=== PATIENT | female | born 1960 | race Caucasian/White ===

== ENCOUNTER 2021-04-30 17:47 | Inpatient (IN) | payer BC ==
[~2021-04-30] VITALS: Ht 162.6 cm; Wt 87.1 kg
[~2021-04-30 17:47] MED LIST: CARISOPRODOL 3350 MG PO; LISINOPRIL10 MG PO; PREDNISONE 10 M10 MG PO; VENTOLIN HFA 1818 GM INH
[2021-04-30 17:56] VITALS: BP 149/85
[2021-04-30] MEDS ORDERED: MELOXICAM7.5 MG PO (17:59)
[2021-04-30 18:26] LABS: HEMATOCRIT 42.9 % (37.0-47.0); HEMOGLOBIN 15.4 gm/dL (12.0-15.0); MCH 33.6 pg (26.0-34.0); MCHC 35.9 g/dL (28.0-37.0); MCV 93.6 fL (80.0-100.0); MPV 7.6 fl. (7.2-11.1); NUCLEATED RBCS 0 /100WBC; PLATELET COUNT* 213 thou/uL (150-400); RBC 4.58 mil/uL (4.20-5.00); RDW-CV 12.6 % (10.5-14.5); WBC 17.4 thou/uL (4.0-11.0)
[2021-04-30 18:35] LABS: CALCIUM 8.4 mg/dL (8.5-10.1); CREATININE 1.2 mg/dL (0.6-1.3); POTASSIUM 3.4 mmol/L (3.5-5.1)
[2021-04-30 18:40] LABS: ALBUMIN 3.4 g/dL (3.4-5.0); TOTAL BILIRUBIN 1.2 mg/dL (<0.1-1.0); TOTAL PROTEIN 7.8 g/dL (6.4-8.2)
[2021-04-30 19:01] LABS: ABSOLUTE LYMPHOCYTES 1.6 thou/uL (0.8-5.3); ABSOLUTE MONOCYTES 0.7 thou/uL (0.0-1.2); ABSOLUTE NEUTROPHILS 15.1 thou/uL (1.6-8.1); ATYPICAL LYMPHS 2 %; CLUMPED PLTS OCCASIONAL; PLATELET ESTIMATE ADEQUATE
[2021-04-30 21:28] VITALS: BP 132/76
[2021-04-30] MEDS ORDERED: LISINOPRIL-HCT1 EAC1 PO (22:01)
[2021-04-30] MEDS ORDERED: SONATA5 M1 PO (22:03)
[2021-04-30] MEDS ORDERED: ACETAMINOPHEN500 M1 PO (22:15)
[2021-05-01] VITALS: BP 150/66
[2021-05-01 04:00] VITALS: BP 96/49
[2021-05-01 08:30] VITALS: BP 133/63
[2021-05-01 12:00] VITALS: BP 141/72
[2021-05-01 12:04] LABS: CALCIUM 7.9 mg/dL (8.5-10.1); CREATININE 0.8 mg/dL (0.6-1.3); POTASSIUM 3.6 mmol/L (3.5-5.1)
[2021-05-01 16:00] VITALS: BP 87/57
[2021-05-01 19:54] VITALS: BP 123/66
[2021-05-02 00:41] VITALS: BP 116/51
[2021-05-02 04:49] LABS: ALBUMIN 2.5 g/dL (3.4-5.0); CREATININE 0.8 mg/dL (0.6-1.3); MAGNESIUM 2.2 mg/dL (1.8-2.4); POTASSIUM 3.8 mmol/L (3.5-5.1); TOTAL BILIRUBIN 0.2 mg/dL (<0.1-1.0); TOTAL PROTEIN 6.3 g/dL (6.4-8.2)
[2021-05-02 04:54] LABS: HEMATOCRIT 33.9 % (37.0-47.0); MCH 33.1 pg (26.0-34.0); MCHC 35.4 g/dL (28.0-37.0); MCV 93.7 fL (80.0-100.0); RBC 3.61 mil/uL (4.20-5.00); RDW-CV 12.6 % (10.5-14.5)
[2021-05-02 05:18] VITALS: BP 110/47
[2021-05-02 08:51] VITALS: BP 108/56
--- NOTE | 2021-05-02 09:54 | EKG ---
[place] [address] ELECTROCARDIOGRAM REPORT Name: NALLELY ALTAMIRANO Room: [address] ADM IN .R.#: [id number] Admission: 05/02/21 Attend Phys: Jessica Edwards, Discharge: Date of : 58 Date of Service: 04/30/21 182 Report #: [id number] THIS REPORT FOR: //name// [facility] ED Test Date: 2021-04-30 Test Time: 18:26:18 Pat Name: NALLELY ALTAMIRANO Department: Room: [facility] Gender: F Body Shop Estimator: OLVIN : 1960 Requested By: Lupillo Murcia Order Number: [id number] MD: Ravi Harrington Measurements Intervals [place] Rate: 94 P: 44 [place]: 105 QRS: -16 QRSD: 97 T: 162 QT: 347 QTc: 434 Interpretive Statements Sinus rhythm Short [place] interval Borderline left axis deviation Borderline repolarization abnormality Baseline wander in lead(s) V5 Compared to ECG 02/08/2015 12:19 rate has increased Electronically Signed On 05-02-2021 9:54:00 CDT by Ravi Harrington [email or web address] <ELECTRONICALLY SIGNED> By: Ravi Harrington MD, FAC 05/02/21 0954 182 1826 Ravi Harrington MD, FAC /EPI
[2021-05-02 12:00] VITALS: BP 108/59
[2021-05-02 15:35] VITALS: BP 117/58
[2021-05-02 19:55] VITALS: BP 143/68
[2021-05-03 00:08] VITALS: BP 116/50
[2021-05-03 04:44] VITALS: BP 111/65
[2021-05-03 04:54] LABS: HEMATOCRIT 33.2 % (37.0-47.0); HEMOGLOBIN 11.8 gm/dL (12.0-15.0); MCH 33.1 pg (26.0-34.0); MCHC 35.4 g/dL (28.0-37.0); MCV 93.3 fL (80.0-100.0); MPV 8.2 fl. (7.2-11.1); RBC 3.56 mil/uL (4.20-5.00); RDW-CV 12.5 % (10.5-14.5); WBC 7.6 thou/uL (4.0-11.0)
[2021-05-03 04:59] LABS: ALBUMIN 2.5 g/dL (3.4-5.0); CALCIUM 7.9 mg/dL (8.5-10.1); CREATININE 0.7 mg/dL (0.6-1.3); POTASSIUM 3.7 mmol/L (3.5-5.1); TOTAL BILIRUBIN 0.3 mg/dL (<0.1-1.0); TOTAL PROTEIN 6.2 g/dL (6.4-8.2)
[2021-05-03 09:15] VITALS: BP 112/60
[2021-05-03 12:00] VITALS: BP 113/59; BP 139/71
[2021-05-03 16:00] VITALS: BP 142/65
[2021-05-03 19:25] VITALS: BP 140/69
[2021-05-03 19:43] LABS: APTT 23.4 Seconds (25.0-31.3); INR 0.9; PROTIME 9.8 Seconds (9.20-11.50)
[2021-05-04] VITALS: BP 110/62
[2021-05-04 04:00] VITALS: BP 157/74
[2021-05-04 04:48] LABS: MCH 32.8 pg (26.0-34.0); MCHC 35.2 g/dL (28.0-37.0); MCV 93.1 fL (80.0-100.0); MPV 7.9 fl. (7.2-11.1); NUCLEATED RBCS 0 /100WBC; PLATELET COUNT* 246 thou/uL (150-400); RBC 3.65 mil/uL (4.20-5.00); RDW-CV 12.2 % (10.5-14.5); WBC 5.5 thou/uL (4.0-11.0)
[2021-05-04 04:57] LABS: CALCIUM 8.3 mg/dL (8.5-10.1); CREATININE 0.9 mg/dL (0.6-1.3); MAGNESIUM 2.1 mg/dL (1.8-2.4); POTASSIUM 4.1 mmol/L (3.5-5.1)
[2021-05-04 06:59] LABS: ABSOLUTE LYMPHOCYTES 0.6 thou/uL (0.8-5.3); ABSOLUTE MONOCYTES 0.2 thou/uL (0.0-1.2); ABSOLUTE NEUTROPHILS 4.7 thou/uL (1.6-8.1); ATYPICAL LYMPHS 3 %; METAMYELOCYTES 6 %; PLATELET ESTIMATE ADEQUATE
[2021-05-04 08:00] VITALS: BP 148/69
[2021-05-04 12:00] VITALS: BP 141/72
--- NOTE | 2021-05-04 13:39 | 2DMMODE ---
[place] [address] 2 D/M-MODE ECHOCARDIOGRAM Name: NALLELY ALTAMIRANO Room: [address] IN [facility].#: [id number] Admission: 05/02/21 Attend Phys: Jessica Edwards, Discharge: Date of : 58 Date of Service: 05/04/21 1339 Report #: [id number] THIS REPORT FOR: cc: Naun Bower,Naun Parish,Ravi Balbuena MD [facility] ~ APPROVED REPORT Study performed: 05/04/2021 10:38:53 EXAM: Comprehensive 2D, Doppler, and color-flow Echocardiogram Patient Location: In-Patient Room #: [facility] Status: routine BSA: 1.90 HR: 91 bpm BP: 148/69 mmHg Rhythm: NSR Other Information Study Quality: Good Indications Sepsis Dyspnea 2D Dimensions IVSd: 7.78 (7-11mm) LVOT Diam: 18.84 (18-24mm) LVDd: 41.34 mm PWd: 7.00 (7-11mm) LVDs: 23.09 (25-40mm) Aortic Root: 29.58 mm Volumes Left Atrial Volume (Systole) LA ESV Index: 21.20 mL/m2 Aortic Valve AoV Peak Jaime.: 1.75 m/s AO Peak Gr.: 12.22 mmHg LVOT Max P.07 mmHg AO Mean Gr.: 7.26 mmHg LVOT Mean P.12 mmHg LVOT Max V: 1.33 m/s AO V2 VTI: 28.05 cm LVOT Mean V: 0.80 m/s PASTORA (VTI): 2.60 cm2 LVOT V1 VTI: 26.21 [place] [address] 2 D/M-MODE ECHOCARDIOGRAM Name: NALLELY ALTAMIRANO Room: [address] IN M.R.#: [id number] Admission: 05/02/21 Attend Phys: Jessica Edwards, Discharge: Date of : 58 Date of Service: 05/04/21 1339 Report #: [id number] Mitral Valve E/A Ratio: 1.22 MV Decel. Time: 211.34 ms MV E Max Jaime.: 1.20 m/s MV PHT: 61.29 ms MVA (PHT): 3.59 cm2 TDI E/Lateral E': 9.23 E/Medial E': 7.06 Medial E' Jaime.: 0.17 m/s Lateral E' Jaime.: 0.13 m/s Pulmonary Valve PV Peak Jaime.: 1.30 m/s PV Peak Gr.: 6.71 mmHg Tricuspid Valve RAP Estimate: 5.00 mmHg TR Peak Gr.: 36.01 mmHg RVSP: 41.00 mmHg PA Pressure: 41.00 mmHg Left Ventricle The left ventricle is normal size. There is normal LV segmental wall motion. There is normal left ventricular wall thickness. Left ventricular systolic function is normal. The left ventricular ejection fraction is within the normal range. LVEF is 60-65%. The left ventricular diastolic function is normal. Right Ventricle The right ventricle is normal size. The right ventricular systolic function is normal. Atria The left atrium size is normal. The right atrium size is normal. Aortic Valve The aortic valve is normal in structure. No aortic regurgitation is present. There is no aortic valvular stenosis. Mitral Valve The mitral valve is normal in structure. There is no mitral valve regurgitation noted. No evidence of mitral valve stenosis. Tricuspid Valve The tricuspid valve [place] [address] 2 D/M-MODE ECHOCARDIOGRAM Name: NALLELY ALTAMIRANO Room: [address] IN [facility]#: [id number] Admission: 05/02/21 Attend Phys: Jessica Edwards, Discharge: Date of : 58 Date of Service: 05/04/21 1339 Report #: [id number] regurgitation. estimated pa pressure 40 mm Hg Pulmonic Valve The pulmonary valve is normal in structure. There is no pulmonic valvular regurgitation. Great Vessels The aortic root is normal in size. IVC is normal in size and collapses >50% with inspiration. Pericardium There is no pericardial effusion. <Conclusion> LVEF is 60-65%. Trace tricuspid regurgitation. estimated pa pressure 40 mm Hg <ELECTRONICALLY SIGNED> By: Ravi Harrington MD, [facility] 05/04/21 1339 1339 1339 Ravi Harrington MD, FACC /INF
[2021-05-04 16:00] VITALS: BP 149/80
[2021-05-04 18:48] LABS: CALCIUM 8.3 mg/dL (8.5-10.1); CREATININE 0.9 mg/dL (0.6-1.3); POTASSIUM 3.8 mmol/L (3.5-5.1)
[2021-05-04 20:00] VITALS: BP 132/78
[2021-05-05 00:32] VITALS: BP 128/64
[2021-05-05 04:10] VITALS: BP 138/60
[2021-05-05 04:35] LABS: CALCIUM 8.3 mg/dL (8.5-10.1); CREATININE 0.8 mg/dL (0.6-1.3); POTASSIUM 3.7 mmol/L (3.5-5.1)
[2021-05-05 08:00] VITALS: BP 145/78
[2021-05-05] MEDS ORDERED: LEVOFLOXACIN500 MG PO (09:24)
[2021-05-05] MEDS ORDERED: PREDNISONE 10 M10 MG PO (09:24)
[2021-05-05] MEDS ORDERED: XARELTO20 MG PO (10:31)
[2021-05-05] MEDS ORDERED: ALPRAZOLAM 0.50.5 M1 PO (10:31)
[2021-05-05] MEDS ORDERED: XARELTO15 MG PO (10:31)
[2021-05-05 12:00] VITALS: BP 149/82
[2021-05-05 14:44] VITALS: BP 145/78
[2021-05-05 16:56] VITALS: BP 145/78
--- NOTE | 2021-05-05 22:32 | CON ---
[address] [address] CONSULTATION Name: NALLELY ALTAMIRANO Room: [address] IN M.R.#: [id number] Admission: 05/02/21 Attend Phys: Jessica Edwards MD Discharge: 05/05/21 Date of : 58 Report #: [id number] THIS REPORT FOR: cc: Naun Bower,Jose Linton MD ~ DATE OF CONSULTATION: 05/03/2021 REQUESTING PHYSICIAN: Dr. Edwards. INDICATION FOR CONSULTATION: COPD exacerbation. HISTORY OF PRESENT ILLNESS: This is a 60-year-old female, active smoker, with history of COPD, not on oxygen or CPAP at home, who presented with increasing shortness of breath of 2-3 days' duration. She has been coughing, has brought up small amounts of white and clear sputum. She has had chest pain on the right side associated with respiration and coughing. She does not have upper respiratory complaints. There is mild swelling of lower extremities. There is no calf pain. The patient does report that she received the Fazal and Fazal COVID-19 vaccine in Spring. She has had disturbed sleep at night as well as sleepiness during the day which is longstanding. The patient was noted to be hypoxemic on arrival. Currently, she is requiring nasal cannula to maintain O2 saturation. Overall, she does report improvement in shortness of breath compared with when she was admitted. REVIEW OF SYSTEMS: Negative for 12 points except as mentioned above. PAST MEDICAL HISTORY: 1. COPD, not on oxygen or positive airway pressure therapy at home. 2. Arthritis. 3. Hypertension. PAST SURGICAL HISTORY: 1. Bowel reconstruction. 2. Hysterectomy. SOCIAL HISTORY: Extensive history of smoking, still smokes. Also has used marijuana. No known history of heavy alcohol use or illegal drug use. Fazal and Fazal COVID-19 vaccine in Spring. ALLERGIES: CODEINE. CURRENT MEDICATIONS: List in [facility] [employer], [place] [address] CONSULTATION Name: NALLELY ALTAMIRANO Room: [address]#: [id number] Admission: 05/02/21 Attend Phys: Jessica Edwards MD Discharge: 05/05/21 Date of : 58 Report #: [id number] HOME MEDICATIONS: List in [employer] [facility] [employer], reviewed. FAMILY HISTORY: No pertinent family history. PHYSICAL EXAMINATION: GENERAL: Alert, awake and oriented. Does not appear to be in any distress. VITAL SIGNS: Pulse 92, blood pressure 140/69, saturating 92-93% on 2-3 liters nasal cannula, afebrile. HEENT: Head is normocephalic and atraumatic. Pupils are equal and reactive. There is no throat erythema. NECK: Does not show raised JVP asymmetry, mass or lymph nodes. CHEST: Symmetrical expansion on inspection and palpation. On auscultation, breath sounds are bilaterally equal, but decreased. Expirations are prolonged. There is no tenderness over the site of chest pain which is where the right lower chest is. HEART: Regular. No murmur. ABDOMEN: Soft and nontender. EXTREMITIES: Lower extremities show trace edema. No calf tenderness. SKIN: Dry and intact. NEUROLOGICAL: Moves all extremities bilaterally equally and spontaneously with no focal deficit identified. LABORATORY AND DIAGNOSTIC DATA: The patient's lab work as well as chest x-rays in [facility] reviewed. I repeated a chest x-ray now as well as coagulation studies. ASSESSMENT AND PLAN: 1. Acute hypoxemic respiratory failure secondary to chronic obstructive pulmonary disease exacerbation. Continue to titrate oxygen. 2. Chronic obstructive pulmonary disease exacerbation. I agree with Solu-Medrol as well as nebulized bronchodilators as currently prescribed. 3. Pulmonary infiltrates. Agree with Levaquin. There may also be a component of fluid overload/increase in pulmonary vascular congestion. We will assess further by an echo as well as I am also ordering a CT. 4. Chest pain. This is most likely musculoskeletal, but I will go ahead and order a CTA chest as well. 5. Mild fluid overload/lower extremity edema. Only trace edema. I feel that overall she is fluid overloaded. I will do venous Dopplers. She will get IV dye with CT. I did not order Lasix now. We will consider later. 6. Hypersomnia/sleep disturbances. She likely has underlying obstructive sleep apnea. Recommended outpatient sleep study after discharge. Some weight loss may also be of benefit. 7. Active smoker/[place] [address] CONSULTATION Name: NALLELY ALTAMIRANO Room: [address]#: [id number] Admission: 05/02/21 Attend Phys: Jessica Edwards MD Discharge: 05/05/21 Date of : 58 Report #: [id number] 8. Deep venous thrombosis prophylaxis. She is on Lovenox. 9. Clostridium difficile prophylaxis. We will add Lactinex. <ELECTRONICALLY SIGNED> By: Jose Pickett MD 05/05/21 2232 2148 [id number] Pickett MD /nt
[2021-05-06 19:07] LABS: ANA INTERPRETATION Negative (())
== END 2021-05-05 16:51 | disposition home or self-care (01) | DRG 871 ==
LOC: M.ERS 17:47 → M.TBA-ER 19:39 → M.2W 19:57
PROVIDERS: Family Medicine; Internal Medicine Critical Care Medicine; Physician Assistant; ADMIT Internal Medicine; ATTEND Internal Medicine
PROC: 5A0935A Assistance with Respiratory Ventilation, Less than 24 Consecutive Hours, High Flow/Velocity Cannula (ICD-10-PCS; principal; 2021-05-01)
PROC: 5A0935A Assistance with Respiratory Ventilation, Less than 24 Consecutive Hours, High Flow/Velocity Cannula (ICD-10-PCS; 2021-05-02)
DX: A41.9 Sepsis, unspecified organism (principal); J96.01 Acute respiratory failure with hypoxia; J15.6 Pneumonia due to other Gram-negative bacteria; I26.99 Other pulmonary embolism without acute cor pulmonale; E87.1 Hypo-osmolality and hyponatremia; J44.1 Chronic obstructive pulmonary disease with (acute) exacerbation; J44.0 Chronic obstructive pulmonary disease with (acute) lower respiratory infection; I10 Essential (primary) hypertension; E87.6 Hypokalemia; G47.10 Hypersomnia, unspecified; F12.90 Cannabis use, unspecified, uncomplicated; E83.51 Hypocalcemia; F17.210 Nicotine dependence, cigarettes, uncomplicated; M19.90 Unspecified osteoarthritis, unspecified site; Z20.822 Contact with and (suspected) exposure to COVID-19; Z90.710 Acquired absence of both cervix and uterus; Z79.899 Other long term (current) drug therapy; Z88.5 Allergy status to narcotic agent

== ENCOUNTER 2021-05-25 14:24 | Emergency (ER) | payer BC ==
[~2021-05-25] VITALS: Ht 162.6 cm; Wt 85.7 kg
[~2021-05-25 14:24] MED LIST changes: +ACETAMINOPHEN500 M1 PO; +ALPRAZOLAM 0.50.5 M1 PO; +LEVOFLOXACIN500 MG PO; +LISINOPRIL-HCT1 EAC1 PO; +MELOXICAM7.5 MG PO; +SONATA5 M1 PO; +XARELTO15 MG PO; +XARELTO20 MG PO
[2021-05-25 15:13] LABS: ABSOLUTE LYMPHOCYTES 0.3 thou/uL (0.8-5.3); ABSOLUTE MONOCYTES 0.3 thou/uL (0.0-1.2); ABSOLUTE NEUTROPHILS 2.6 thou/uL (1.6-8.1); BASOPHILS 0.9 %; EOSINOPHILS 0.1 %; HEMATOCRIT 40.9 % (37.0-47.0); LYMPHOCYTES 9.8 %; MCH 31.6 pg (26.0-34.0); MCHC 34.2 g/dL (28.0-37.0); MCV 92.6 fL (80.0-100.0); MONOCYTES 9.7 %; MPV 7.1 fl. (7.2-11.1); NUCLEATED RBCS 0 /100WBC; PLATELET COUNT* 190 thou/uL (150-400); POLYS 79.5 %; RBC 4.41 mil/uL (4.20-5.00); RDW-CV 12.9 % (10.5-14.5); WBC 3.2 thou/uL (4.0-11.0)
[2021-05-25 15:19] LABS: INFLUENZA A ANTIGEN Negative (Negative); INFLUENZA B ANTIGEN Negative (Negative)
[2021-05-25 15:27] LABS: CALCIUM 8.3 mg/dL (8.5-10.1); POTASSIUM 3.8 mmol/L (3.5-5.1)
[2021-05-25 15:31] LABS: ALBUMIN 3.6 g/dL (3.4-5.0); TOTAL BILIRUBIN 0.5 mg/dL (<0.1-1.0); TOTAL PROTEIN 7.2 g/dL (6.4-8.2)
[2021-05-25 17:10] VITALS: BP 113/68
--- NOTE | 2021-05-26 09:59 | EKG ---
[place] [address] ELECTROCARDIOGRAM REPORT Name: ADARSHNALLELY Room: [facility]#: [id number] Admission: 05/25/21 Attend Phys: Discharge: 05/25/21 Date of : 58 Date of Service: 05/25/21 1513 Report #: [id number] THIS REPORT FOR: //name// [facility] ED Test Date: 2021-05-25 Test Time: 15:13:24 Pat Name: NALLELY ALTAMIRANO Department: Room: Gender: F Clammer: : 1960 Requested By: Arnol Delgadillo Order Number: [id number] MD: Ravi Harrington Measurements Intervals [place] Rate: 102 P: 35 ND: 109 QRS: -29 QRSD: 95 T: 65 QT: 341 QTc: 445 Interpretive Statements Sinus tachycardia Borderline left axis deviation Low voltage, precordial leads Abnormal R-wave progression, late transition Artifact in lead(s) I,II,III,aVR,aVL,aVF,V6 Compared to ECG 04/30/2021 18:26:18 Low QRS voltage now present Sinus rhythm no longer present Electronically Signed On 05-26-2021 9:59:41 CDT by Ravi Harrington [email or web address] <ELECTRONICALLY SIGNED> By: Ravi Harrington MD, [facility] 05/26/21 0959 1513 1513 Ravi Harrington MD, [facility] /EPI
== END 2021-05-25 17:00 | disposition home or self-care (01) ==
LOC: M.ERS 14:24
PROVIDERS: Nurse Practitioner Psychiatric/Mental Health
DX: U07.1 COVID-19 (principal); J44.9 Chronic obstructive pulmonary disease, unspecified; I10 Essential (primary) hypertension; Z88.5 Allergy status to narcotic agent

== ENCOUNTER 2021-09-12 06:22 | Inpatient (IN) | payer BC ==
[~2021-09-12] VITALS: Ht 162.6 cm; Wt 81.6 kg
[2021-09-12 06:32] VITALS: BP 129/93
[2021-09-12] MEDS ORDERED: ADVAIR (06:38)
[2021-09-12 06:49] LABS: ABSOLUTE LYMPHOCYTES 1.1 thou/uL (0.8-5.3); ABSOLUTE MONOCYTES 0.7 thou/uL (0.0-1.2); ABSOLUTE NEUTROPHILS 5.2 thou/uL (1.6-8.1); BASOPHILS 0.4 %; EOSINOPHILS 0.3 %; HEMATOCRIT 45.2 % (37.0-47.0); HEMOGLOBIN 15.5 gm/dL (12.0-15.0); MCH 31.6 pg (26.0-34.0); MCHC 34.4 g/dL (28.0-37.0); MCV 91.8 fL (80.0-100.0); MONOCYTES 10.4 %; MPV 7.5 fl. (7.2-11.1); NUCLEATED RBCS 0 /100WBC; PLATELET COUNT* 332 thou/uL (150-400); POLYS 72.9 %; RBC 4.92 mil/uL (4.20-5.00); RDW-CV 12.5 % (10.5-14.5); WBC 7.1 thou/uL (4.0-11.0)
[2021-09-12 07:08] LABS: CALCIUM 8.8 mg/dL (8.5-10.1); CREATININE 0.7 mg/dL (0.6-1.3); POTASSIUM 3.9 mmol/L (3.5-5.1)
[2021-09-12 07:13] LABS: ALBUMIN 3.8 g/dL (3.4-5.0); MAGNESIUM 1.8 mg/dL (1.8-2.4); TOTAL BILIRUBIN 0.5 mg/dL (<0.1-1.0)
[2021-09-12 09:03] LABS: URINE BILIRUBIN NEGATIVE (Negative); URINE BLOOD TRACE (Negative); URINE CLARITY CLEAR; URINE COLOR YELLOW; URINE GLUCOSE-RANDOM NEGATIVE (Negative); URINE KETONES TRACE (Negative); URINE LEUKOCYTES-REFLEX NEGATIVE (Negative); URINE NITRITE-REFLEX NEGATIVE (Negative); URINE PROTEIN NEGATIVE (Negative); URINE SPECIFIC GRAVITY 1.015 (1.005-1.030); URINE UROBILINOGEN 0.2 E.U./dl (0.2-1.0)
[2021-09-12 10:40] VITALS: BP 132/84
[2021-09-12 10:48] VITALS: BP 156/91
[2021-09-12] MEDS ORDERED: PROAIR HFA8.5 GM INH (11:04)
[2021-09-12 12:00] VITALS: BP 121/53
[2021-09-12 16:00] VITALS: BP 126/63
--- NOTE | 2021-09-12 16:04 | EKG ---
[place] [address] ELECTROCARDIOGRAM REPORT Name: DANGZinaNALLELY Room: [address] ADM IN ..#: [id number] Admission: 09/12/21 Attend Phys: Bill Kwon Discharge: Date of : 58 Date of Service: 09/12/21 0631 Report #: [id number] THIS REPORT FOR: //name// [facility] ED Test Date: 2021-09-12 Test Time: 06:31:06 Pat Name: NALLELY ALTAMIRANO Department: Room: [facility] Gender: F Network Director: CEDRIC : 1960 Requested By: Julianne Guzman Order Number: [id number] MD: Nain Leonardo Measurements Intervals [place] Rate: 86 P: 38 RI: 109 QRS: -37 QRSD: 103 T: 142 QT: 378 QTc: 452 Interpretive Statements Sinus rhythm Short [place] interval Left axis deviation Possible anteroseptal infarct, old Borderline ST depression, inferior leads Abnormal T, consider ischemia, lateral leads Borderline ST elevation, lateral leads Artifact in lead(s) I,III,aVR,aVL,aVF Compared to ECG 05/25/2021 15:13:24 Short RI interval now present Myocardial infarct finding persists ST (T wave) deviation now present Electronically Signed On 09-12-2021 16:04:04 EARRINGS FABRICATOR by Nain Leonardo [email or web address] <ELECTRONICALLY SIGNED> By: Nain Leonardo MD, [facility] 09/12/21 1604 0 Nain Leonardo MD, [facility] /EPI
--- NOTE | 2021-09-12 16:10 | EKG ---
[place] [address] ELECTROCARDIOGRAM REPORT Name: DANGZinaNALLELY Room: [address] ADM [place] .R.#: [id number] Admission: 09/12/21 Attend Phys: Bill Kwon Discharge: Date of : 58 Date of Service: 09/12/21 1555 Report #: [id number] THIS REPORT FOR: //name// [facility] Test Date: 2021-09-12 Test Time: 15:55:08 Pat Name: NALLELY ALTAMIRANO Department: Room: [facility] Gender: F Psychological Anthropologist: LORENZA : 1960 Requested By: Damaris Luna Order Number: [id number] Reading MD: Nain Leonardo Measurements Intervals [place] Rate: 94 P: 62 [place]: 106 QRS: -27 QRSD: 93 T: 171 QT: 365 QTc: 457 Interpretive Statements Sinus rhythm Short [place] interval Borderline left axis deviation Abnormal R-wave progression, late transition Abnormal T, consider ischemia, lateral leads Compared to ECG 09/12/2021 06:31:06 Myocardial infarct finding no longer present Nonspecific ST abnormalities persist Electronically Signed On 09-12-2021 16:10:18 PIG HANDLER by Nain Leonardo [email or web address] <ELECTRONICALLY SIGNED> By: Nain Leonardo MD, FACC 09/12/21 1610 1555 1555 Nain Leonardo MD, [facility] /EPI
[2021-09-12 21:20] VITALS: BP 114/75
[2021-09-13 00:47] VITALS: BP 115/70
[2021-09-13 04:05] LABS: ABSOLUTE LYMPHOCYTES 0.7 thou/uL (0.8-5.3); ABSOLUTE MONOCYTES 0.2 thou/uL (0.0-1.2); ABSOLUTE NEUTROPHILS 3.3 thou/uL (1.6-8.1); BASOPHILS 0.3 %; HEMATOCRIT 46.8 % (37.0-47.0); HEMOGLOBIN 16.6 gm/dL (12.0-15.0); LYMPHOCYTES 16.4 %; MCH 32.3 pg (26.0-34.0); MCHC 35.5 g/dL (28.0-37.0); MCV 91.1 fL (80.0-100.0); MONOCYTES 4.1 %; MPV 7.9 fl. (7.2-11.1); NUCLEATED RBCS 0 /100WBC; PLATELET COUNT* 354 thou/uL (150-400); POLYS 79.2 %; RBC 5.14 mil/uL (4.20-5.00); RDW-CV 12.5 % (10.5-14.5); WBC 4.1 thou/uL (4.0-11.0)
[2021-09-13 04:47] LABS: ALBUMIN 3.9 g/dL (3.4-5.0); CALCIUM 9.1 mg/dL (8.5-10.1); CREATININE 0.9 mg/dL (0.6-1.3); MAGNESIUM 2.2 mg/dL (1.8-2.4); POTASSIUM 4.7 mmol/L (3.5-5.1); TOTAL BILIRUBIN 0.4 mg/dL (<0.1-1.0); TOTAL PROTEIN 7.5 g/dL (6.4-8.2)
[2021-09-13 05:25] VITALS: BP 124/52
[2021-09-13 07:53] VITALS: BP 105/66
--- NOTE | 2021-09-13 10:46 | 2DMMODE ---
[address] [address] 2 D/M-MODE ECHOCARDIOGRAM Name: NALLELY ALTAMIRANO Room: [address] ADM IN [facility]#: [id number] Admission: 09/12/21 Attend Phys: Bill Kwon Discharge: Date of : 58 Date of Service: 09/13/21 1046 Report #: [id number] THIS REPORT FOR: cc: Naun Bower Brad DO Liston, Michael J. MD [facility] ~ APPROVED REPORT Study performed: 09/12/2021 14:09:13 EXAM: Limited 2D Echocardiogram Patient Location: In-Patient Room #: [facility] Status: routine BSA: 1.89 BP: 121/53 mmHg Rhythm: NSR Other Information Study Quality: Good Indications Elevated Troponin Left Ventricle The left ventricle is normal size. There is normal LV segmental wall motion. There is normal left ventricular wall thickness. The left ventricular systolic function is normal. LVEF is 55-60%. Right Ventricle The right ventricle is normal size. The right ventricular systolic function is normal. Atria The left atrium size is normal. The right atrium size is normal. Aortic Valve The aortic valve is normal in structure. Mitral Valve The mitral valve is normal in structure. Tricuspid Valve [facility] [address] [place] [address] 2 D/M-MODE ECHOCARDIOGRAM Name: ADARSHNALLELY M Room: [address] IN .R.#: [id number] Admission: 09/12/21 Attend Phys: Bill Kwon Discharge: Date of : 58 Date of Service: 09/13/21 1046 Report #: [id number] The tricuspid valve is normal in structure. Unable to assess PA pressure. Trace tricuspid regurgitation. Pulmonic Valve The pulmonary valve is normal in structure. Great Vessels The aortic root is normal in size. IVC is normal in size and collapses >50% with inspiration. Pericardium There is no pericardial effusion. <Conclusion> The left ventricle is normal size. There is normal left ventricular wall thickness. The left ventricular systolic function is normal. <ELECTRONICALLY SIGNED> By: Flo Tompkins MD, FACC 09/13/216 45 45 Flo Tompkins MD, FACC /INF
[2021-09-13 12:00] VITALS: BP 115/77
[2021-09-13 14:19] LABS: TC:HDL 3.9 Ratio (Not establshd)
[2021-09-13 16:00] VITALS: BP 121/75
[2021-09-13 20:00] VITALS: BP 110/78
[2021-09-14 00:15] VITALS: BP 80/52
[2021-09-14 04:22] LABS: HEMOGLOBIN 14.7 gm/dL (12.0-15.0); MCH 31.8 pg (26.0-34.0); MCV 90.8 fL (80.0-100.0); MPV 7.8 fl. (7.2-11.1); NUCLEATED RBCS 0 /100WBC; PLATELET COUNT* 350 thou/uL (150-400); RBC 4.62 mil/uL (4.20-5.00); RDW-CV 12.4 % (10.5-14.5); WBC 9.5 thou/uL (4.0-11.0)
[2021-09-14 04:47] LABS: ALBUMIN 3.7 g/dL (3.4-5.0); CALCIUM 8.7 mg/dL (8.5-10.1); POTASSIUM 4.4 mmol/L (3.5-5.1); TOTAL BILIRUBIN 0.2 mg/dL (<0.1-1.0); TOTAL PROTEIN 6.8 g/dL (6.4-8.2)
[2021-09-14 05:05] VITALS: BP 85/56
[2021-09-14 06:34] LABS: ABSOLUTE LYMPHOCYTES 0.4 thou/uL (0.8-5.3); ABSOLUTE MONOCYTES 0.3 thou/uL (0.0-1.2); ABSOLUTE NEUTROPHILS 8.8 thou/uL (1.6-8.1)
[2021-09-14 06:35] LABS: PLATELET ESTIMATE ADEQUATE
[2021-09-14 08:00] VITALS: BP 144/63
[2021-09-14 13:22] VITALS: BP 109/63
[2021-09-14 17:50] VITALS: BP 112/62
[2021-09-14 19:36] VITALS: BP 119/66
[2021-09-15 01:41] VITALS: BP 115/58
[2021-09-15 05:49] VITALS: BP 125/64
[2021-09-15 08:00] VITALS: BP 133/69
--- NOTE | 2021-09-15 11:31 | CON ---
[address] [address] CONSULTATION Name: NALLELY ALTAMIRANO Room: [address] IN M.R.#: [id number] Admission: 09/12/21 Attend Phys: Dwight Doty Discharge: Date of : 58 Report #: [id number] THIS REPORT FOR: cc: Naun Bower,Jose Linton MD ~ DATE OF CONSULTATION: 09/12/2021 REQUESTING PHYSICIAN: Bill Kwon DO. INDICATION FOR CONSULTATION: Shortness of breath. HISTORY OF PRESENT ILLNESS: This is a 61-year-old female. Her past medical history is as mentioned below. She is an active smoker. I have seen her during her previous admission to this hospital back in April. The patient, previous to that, was not on supplemental oxygen. She had presented with shortness of breath and we did diagnose her with pulmonary emboli. The patient had traveled to [place] shortly prior to that episode. She is vaccinated for COVID-19, initially Fazal and Fazal and then Moderna as a booster. We have discharged her on oxygen. The patient is now again admitted with increasing shortness of breath. She has had a cough. There is not much sputum. She says she has had a clear nasal discharge as well as a blocked nose. There is a minor sore throat. No swelling of lower extremities, no calf pain. She answers to the negative for 12 questions for review of systems except as mentioned above. She is not currently having chest pain. There is no heartburn. No swelling of lower extremities or calf pain. PAST MEDICAL HISTORY: COPD, was not on oxygen until April. We started her on oxygen in April. Acute pulmonary emboli in April. Venous Dopplers at that time were negative. Oxygen therapy at home started also in April. Had echocardiogram at that time, which showed a left ventricular ejection fraction normal with right heart pressure mildly elevated to 41. Osteoarthritis, hypertension, bowel reconstruction, and hysterectomy. COVID-19, for which she was seen in the ER in May. SOCIAL HISTORY: Extensive history of smoking, still smokes. Also has used marijuana in the past. No known history of heavy alcohol use or illegal drug use. CURRENT MEDICATIONS: List in [facility] reviewed. HOME MEDICATIONS: List [place] [address] CONSULTATION Name: NALLELY ALTAMIRANO Room: [address]#: [id number] Admission: 09/12/21 Attend Phys: Dwight Doty Discharge: Date of : 58 Report #: [id number] ALLERGIES: CODEINE. FAMILY HISTORY: No pertinent family history. PHYSICAL EXAMINATION: GENERAL: She is alert, awake and oriented. VITAL SIGNS: Has a pulse of 96 and a blood pressure of 121/53. She is saturating 96%. She is on 3 liters nasal cannula. She is afebrile with a temperature of 36.5 and respiratory rate is 20. HEENT: Head is normocephalic and atraumatic. Pupils are equal and reactive. There is mild throat erythema. NECK: Does not show raised JVP, asymmetry, mass or lymph nodes. CHEST: Symmetrical expansion on inspection and palpation. On auscultation, breath sounds are bilaterally equal. Expirations are prolonged. There are bilateral expiratory wheezes. HEART: Regular. There is no murmur. ABDOMEN: Soft and nontender. EXTREMITIES: Lower extremities show no edema and no calf tenderness. SKIN: Dry and intact. NEUROLOGIC: Moves all extremities bilaterally equally and spontaneously with no focal deficit identified. LABORATORY DATA: The patient just had a chest x-ray performed, which does not show any new abnormalities. The patient's lab work also in [facility] reviewed. ASSESSMENT AND PLAN: 1. Shortness of breath. She does appear to have a chronic obstructive pulmonary disease exacerbation. I would defer to the Cardiology Service regarding evaluation for cardiac etiologies of shortness of breath. 2. Chronic obstructive pulmonary disease exacerbation. Recommend starting Solu-Medrol, also ordered DuoNeb. Would treat her with doxycycline as well. Recommend smoking cessation. 3. Past history of acute pulmonary emboli. She has been on Xarelto at home. However, D-dimer now is 0.21, therefore I doubt new pulmonary emboli. We did do a hypercoagulability profile the last time she was here with IgM cardiolipin in the intermediate range. The rest looks unremarkable. We need to determine the length of anticoagulation needed. She had traveled to [place] shortly before the last episode. For now, I recommend continuing with Xarelto. I also suggest that we go ahead with a repeat CTA chest to follow up on previously seen pulmonary emboli; however, neither of these is urgent. We will await Cardiology input. If they feel that from their point of view for a procedure, we need to hold anticoagulation for a couple of days, then it is okay to hold. Also if there is a plan to give IV dye for any other reason, then I would hold off for now on a CTA chest in that case. [address] [address] CONSULTATION Name: NALLELY ALTAMIRANO [address] [id number] Admission: 09/12/21 Attend Phys: Dwight Doty Discharge: Date of : 58 Report #: [id number] 4. Clear nasal discharge/nasal congestion. We will give her Afrin p.r.n. We will also give her saline nose spray p.r.n. The patient has been vaccinated initially with Fazal and Fazal COVID-19 vaccine, then she had COVID in May and then subsequent to that, she, in fact, received Moderna COVID-19 vaccine. Therefore, COVID appears to be unlikely at this time and I did not order a PCR. Influenza antigen was negative. I will go ahead and order a viral respiratory panel. 5. Hypersomnia/sleep disturbances. She has had these complaints in the past, needs an outpatient sleep study. 6. Assessment for long-term oxygen needs. She needed oxygen when she had pulmonary emboli in April. It is not fully established if she needs oxygen long-term. It appears likely that at least she will need while asleep if she is not on a CPAP. For now, recommend continuing oxygen. I can see her in the office and follow up. 7. Deep vein thrombosis prophylaxis. She needs suggestion regarding anticoagulation as above. 8. Gastrointestinal prophylaxis, Protonix. 9. Clostridium difficile prophylaxis, Lactinex. Thanks for this consultation. <ELECTRONICALLY SIGNED> By: Jose Pickett MD 09/15/21 1131 1454 1949AMD taylor Camargo
[2021-09-15 12:00] VITALS: BP 114/57
[2021-09-15] MEDS ORDERED: PROTONIX40 M4 PO (14:07)
[2021-09-15] MEDS ORDERED: AUGMENTIN 875-1 EACH PO (14:07)
[2021-09-15] MEDS ORDERED: PREDNISONE 10 M10 MG PO (14:07)
[2021-09-15 14:11] VITALS: BP 114/57
[2021-09-15 14:55] VITALS: BP 114/57
== END 2021-09-15 14:32 | disposition home or self-care (01) | DRG 871 ==
LOC: M.ERS 06:22 → M.2W 08:27 → M.TBA-ER 08:27 → M.2W 10:42
PROVIDERS: Emergency Medicine; Internal Medicine Critical Care Medicine; Registered Nurse; ADMIT Internal Medicine; ATTEND Internal Medicine
DX: A41.9 Sepsis, unspecified organism (principal); I50.33 Acute on chronic diastolic (congestive) heart failure; J96.01 Acute respiratory failure with hypoxia; J18.9 Pneumonia, unspecified organism; J44.1 Chronic obstructive pulmonary disease with (acute) exacerbation; E87.1 Hypo-osmolality and hyponatremia; J44.0 Chronic obstructive pulmonary disease with (acute) lower respiratory infection; I11.0 Hypertensive heart disease with heart failure; M19.90 Unspecified osteoarthritis, unspecified site; Z88.6 Allergy status to analgesic agent; Z90.710 Acquired absence of both cervix and uterus; Z86.711 Personal history of pulmonary embolism; Z20.822 Contact with and (suspected) exposure to COVID-19